=== PATIENT | female | born 1990 | race Caucasian/White ===

== ENCOUNTER 2017-05-12 11:10 | Emergency (ER) | payer OTHER ==
[~2017-05-12] VITALS: Ht 162.6 cm; Wt 81.6 kg
[~2017-05-12 11:10] MED LIST: ACETAMINOPHEN500 M3 PO; ANUSOL-HC25 M1 RC; BACTRIM DS 8001 TAB PO; BENTYL10 M1 PO; CARAFATE1 GM PO; CIPRO 500MG TA500 MG PO; ENDOCET 325 MG-1 TAB PO; FIBER CON625 MG PO; FIBER PO; HYDROCODONE-APA1 TA1 PO; IBU-8800 MG PO; LEVAQUIN500 MG PO; LODINE400 MG PO; LORTAB 5/500 501 TAB PO; MACROBID 100MG100 M1 PO; MACROBID 100MG100 MG PO; METFORMIN500 MG PO; MULTI VITAMINS1 TAB PO; NOMEDS *; NORCO 325 MG-51 TAB PO; OMEPRAZOLE20 MG PO; PHENAZOPYRIDIN100 M1 PO; PHENERGAN 25MG.25 M1 PO; PRENATAL PLUS1 TA1 PO; PREVACID 30MG C30 M1 PO; PRILOSEC20 M1 PO; PYRIDIUM100 M1 PO; PYRIDIUM100 M2 PO; RA PRENATAL TA1 EACH PO; TYLENOL 325MG325 MG PO; TYLENOL ES500 M1 PO; TYLENOL ES500 MG PO; TYLENOL W/CODEI1 TA2 PO; ULTRACET 325 MG1 TAB PO; ZOFRAN ODT4 MG PO; ZOFRAN4 MG PO; [UNRECOGNIZED DRUG - OTHER] PO
[2017-05-12] MEDS ORDERED: ZITHROMAX Z PA250 MG PO (11:41)
[2017-05-12 11:42] VITALS: BP 133/86
--- NOTE | 2017-05-12 11:42 | Urgent Treatment Center Report ---
History of Present Issue Date/Time Seen by Provider 05/12/17 1129 Visit Reason Pt arrived:Walked Presenting Problem:RT EAR PAIN EXTERNAL AND INTERNAL WITH NECK PAIN SINCE LAST WEDNESDAY THAT HAS GOTTEN WORSE. FEELS SWOLLEN AROUND THE EAR. Location if Accident: Onset of symptoms date/time:/ or onset unknown for:MEDICAL HX UNKNOWN Have you (or family members/close friends) recently traveled outside the [place]? N If Yes, where/when: Have you had exposure to infectious disease within the past month? TB? Other? Specify: Patient state that she has been having pain on the outside part of her ear and sore behind the ear down the neck area since last night State that she has not been feeling sick State that she did have a migraine headache yesterday and pain began after that not sure if maybe the migraine may have made her sore ALLERGIES Coded Allergies: Penicillins (I-RASH 09/18/16) Tetanus Vaccines and Toxoid (LOCAL REACTION 09/18/16) amoxicillin (I-RASH 09/18/16) aspirin (NA-NAUSEA/VOMITING 09/18/16) hydromorphone (From DILAUDID) (N-PHQQZX-ULQO/THROAT 09/18/16) ibuprofen (NA-NAUSEA/VOMITING 09/18/16) tetanus and diphtheria toxoids (LOCAL REACTION 09/18/16) History Medical History General CAD? No Angina: No IN: No Hypertension? No Hyperlipidemia? No CHF? No DVT? No PE? No COPD? No Asthma? No Anemia? No GERD? No Gastric ulcers? No GI Bleed? No Hernia? No Thyroid Problems? No Hypothyroidism? No CVA? No Seizures? No Diabetes? No Renal Insuffiency? No UTI? No Stones? No BPH? No GB Disease: No Nephritic Syndrome? No Asplenia? No Hepatitis? No Sickle Cell Disease? No Arthritis? No Migraines? No Cataracts? No Glaucoma? No MRSA? No HIV? No TB? No Anxiety? No Depression? No Cancer? No Immunization HX DT/Tetanus 1-4 Years Ago Flu Refused Pneumonia Refuses Surgical Hx Previous Surgery?Y Cholecystectomy [employer] Tooth Extraction Family History Family HX Diabetes Yes CAD No Hypertension No Hyperlipidemia No Cancer Yes TB No Social History Smoking Hx Smoker: Never Smoker Tobacco: No Alcohol Alcohol: No Review of Systems All Other Systems Reviewed and Negative Constitutional denies fever ENT ear pain. denies: ear discharge, nose congestion, throat pain. Respiratory denies cough Psychiatric/Neurological headache, denies numbness Physical Exam Vital Signs Vital Signs Date Time Temp Pulse Resp B/P Pulse O2 O2 Flow FiO2 Ox Delivery Rate 05/12 1119 97.7 91 20 133/86 97 General Appearance normal appearance, WD/WN, no apparent distress Eye Exam - bilateral eye normal exam, bilateral eye PERRL, bilateral eye EOMI Ear, Nose, Throat Right ear dull , TM dull, cloudy Neck normal inspection, non-tender, supple, full range of motion Respiratory Status Yes: trachea midline, chest symmetrical, non tender chest. No: respiratory distress. Lung Sounds bilateral: normal breath sounds, lungs clear. Cardiovascular normal exam, regular rate/rhythm, no peripheral edema Neurologic alert, normal exam, oriented x 3 Medical Decision Making LABS/Meds/Orders Pt receiving controlled substance in ED? No Results/Orders Current Medication Orders Sig/Jaymie Start time Last Medication Dose Route Stop Time Status Admin Acetaminophen 650 MG ONCE ONE 05/12 1130 DC 05/12 PO 05/12 1131 1137 Departure Departure Time of Disposition 1138 Disposition DC Home or Self Care(routine) Clinical Impression Primary Impression: Otitis media Qualifiers: Otitis media type: unspecified Chronicity: acute Qualified Code: H66.90 - Otitis media, unspecified, unspecified ear Condition STABLE Referrals Titi MICHAUD,Donal Whaley (Family): 3 Days-Call Office if no improvement Patient Instructions Middle Ear Infection Additional Instructions Take medication as prescribed Follow up with family doctor Returnt if needed Discharge Counseling Counseled pt/family regarding diagnosis, medications/RX, home care, follow up needs Prescriptions Current Visit Scripts Azithromycin (Zithromycin (Z-TAYA) 250MG Tab) 250 MG PO DAILY #6 TAB TAKE TWO (2) TABLETS ON DAY 1, THEN ONE (1) TABLET DAY #2 THRU #5 at 1141
--- OUTSIDE RECORDS SUMMARY | 2017-05-15 08:24 | External Medical Summary Rpt | CCD ---
Demographics Preferred Language Finnish Marital Status Unknown Nondenominational Affiliation Unknown Race Unknown Ethnic Group Unknown Author Author , MARLEEN HAWLEY Address Unknown Phone Immunization No patient found.
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
--- OUTSIDE RECORDS SUMMARY | 2017-05-15 08:24 | External Medical Summary Rpt ---
Author Author MARLEEN Cantrell, MARLEEN Cantrell Organization [employer] Address Unknown Phone Unavailable
--- OUTSIDE RECORDS SUMMARY | 2017-05-15 08:24 | External Medical Summary Rpt | CCD ---
Author Author [employer] Organization [employer] Address Unknown Phone Unavailable Purpose Continuity of Care Document - through 2016
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
--- OUTSIDE RECORDS SUMMARY | 2017-05-15 08:24 | External Medical Summary Rpt | CCD ---
Demographics Preferred Language Somali Marital Status Unknown Worship Affiliation Unknown Race Unknown Ethnic Group Unknown Author Author , MARLEEN HAWLEY Address Unknown Phone Immunization No patient found.
== END 2017-05-12 11:42 | disposition home or self-care (01) ==
LOC: UTC 11:10
DX: H66.91 Otitis media, unspecified, right ear (principal); Z88.0 Allergy status to penicillin; Z88.1 Allergy status to other antibiotic agents; Z88.8 Allergy status to other drugs, medicaments and biological substances